=== PATIENT | male | born 2005 | race Caucasian/White ===

== ENCOUNTER 2023-10-28 13:13 | Emergency (ER) | payer OTHER, SELFPAY ==
[2023-10-28 13:23] VITALS: BP 142/73; PULSE 81; RESP 18; TEMP 36.8; O2SAT 96
--- NOTE | 2023-10-28 13:39 | ED.ALLEREA ---
HPI - Allergic Reaction General Time Seen by Provider: 13:39 Date Seen: 10/28/23 Chief complaint: Allergic Reaction Stated complaint: weak Time Seen by Provider: 10/28/23 13:17 Source: patient, EMS and RN notes reviewed Mode of arrival: EMS Limitations: no limitations History of Present Illness HPI narrative: This 18-year-old male is brought in by EMS for concern of an allergic reaction. He is a [employer] student, got stung on his 3rd finger by a wasp. Has had anaphylaxis type reaction with prior wasp stings. He did have Benadryl, took 50 mg right away. He unfortunately did not have his EpiPen in his backpack. He felt weak, nausea, felt like the back of his throat and his throat were closing. He had no difficulty breathing, could always swallow and manage his secretions, no rash. The did call EMS, by the time EMS got there he was feeling better. Epinephrine was never given. He feels back to baseline now. This episode happened about 12:30 p.m. today per his report. MD complaint: allergic reaction Treatment prior to arrival: benadryl Previous Allergic Reaction History: anaphylaxis Related Data Previous Rx's ?Medication ?Instructions ?Recorded prednisone 20 mg tablet 20 mg PO BID #4 tabs 10/28/23 Allergies Allergy/AdvReac Type Severity Reaction Status Date / Time whasp Allergy Severe Anaphylaxis Uncoded 10/28/23 13:37 Review of Systems Narrative As per HPI. Exam Const: Vital Signs, click to edit/add: Vital Signs - 24 hr 10/28/23 13:23 Temperature 98.2 F Pulse Rate [Pulse Oximeter] 81 Respiratory Rate 18 Blood Pressure [Ri ght Upper Arm] 142/73 H Pulse Oximetry 96 Oxygen Delivery Me thod Room Air This 18-year-old male is alert, interactive, no apparent distress. Pupils equal round reactive to light, sclera clear, extraocular muscles intact, symmetrical facial function. No lip or oral pharyngeal swelling, tongue is normal, posterior pharynx normal. Neck is supple, no adenopathy or masses. Lungs are clear, no wheezing or crackles, good air entry, no tachypnea. CV regular rate and rhythm, no murmur, normal S1-S2, no S3-S4. Abdomen is soft, nontender, nondistended, no masses, no organomegaly. Skin visualized without any rash. The left 3rd finger has some minimal erythema along the pad, do not see any retained foreign body. Documenting provider has reviewed patient's vital signs: yes Course Course ED Course: Patient will be given dose of oral prednisone, dose of Zyrtec. He will be watched on pulse oximetry to ensure no rebound symptoms. We discussed the importance of taking epinephrine if there are systemic reactions. He maybe anayeli that he responded to Benadryl alone. He does not need a refill of his EpiPen, will make sure that he is carrying 1 all the time. Reevaluation(s) Time of Reevaluation #1: 14:19 Reevaluation #1: Patient is feeling fine, no recurrent symptoms. He is back to baseline, will discharge to home. Vital Signs Vital signs: Initial Vital Signs Temperature 98.2 F 10/28/23 13:23 Temperature Source Temporal Artery Scan 10/28/23 13:23 Pulse Rate 81 10/28/23 13:23 Respiratory Rate 18 10/28/23 13:23 Blood Pressure 142/73 H 10/28/23 13:23 Blood Pressure Mean 96 10/28/23 13:23 Blood Pressure Position Sitting 10/28/23 13:23 Pulse Oximetry 96 10/28/23 13:23 Oxygen Delivery Method Room Air 10/28/23 13:23 Vital Signs Temperature 98.2 F 10/28/23 13:23 Pulse Rate 81 10/28/23 13:23 Respiratory Rate 18 10/28/23 13:23 Blood Pressure 142/73 H 10/28/23 13:23 Pulse Oximetry 96 10/28/23 13:23 Oxygen Delivery Method Room Air 10/28/23 13:23 Temperature 98.2 F 10/28/23 13:23 Pulse Rate 81 10/28/23 13:23 Respiratory Rate 18 10/28/23 13:23 Blood Pressure 142/73 H 10/28/23 13:23 Pulse Oximetry 96 10/28/23 13:23 Oxygen Delivery Method Room Air 10/28/23 13:23 Medications Administered Medications: Discontinued Medications Generic Name Dose Route Start Last Admin Trade Name Freq PRN Reason Stop Dose Admin Cetirizine HCl 10 mg 10/28/23 13:45 10/28/23 14:04 Cetirizine Hcl 10 Mg Tablet PO 10/28/23 13:46 10 mg DAILY ONE Administration Prednisone 40 mg 10/28/23 13:45 10/28/23 14:04 Prednisone 10 Mg Tablet PO 10/28/23 13:46 40 mg ONCE ONE Administration Discharge Plan Discharge Clinical Impression: Allergic reaction Patient Disposition: Home, Self-Care Condition: Stable Instructions: Anaphylaxis (ED), General Allergic Reaction (ED) Additional Instructions: Recommend taking Zyrtec or Claritin daily for the next 3 days, your given Zyrtec here today in the ER. Will give you a short course of prednisone, recommend taking with food. Next dose due tomorrow morning. Highly recommend that you carry an EpiPen with you at all times, continue to carry Benadryl with you as well. Is always recommended that you take your EpiPen if you are having a systemic allergic reaction. If you do take your EpiPen, do need to be seen emergently. Activity Level: Activity as Tolerated Prescriptions: New prednisone 20 mg tablet 20 mg PO BID Qty: 4 0RF Stand Alone Forms: [employer] Info Instructions
[2023-10-28 13:46] VITALS: O2SAT 98
[2023-10-28] MEDS: CETIRIZINE HCL 10 MG TABLET PO (14:04)
[2023-10-28] MEDS: predniSONE 10 MG TABLET 40 MG PO (14:04)
[2023-10-28 14:43] VITALS: BP 130/83; PULSE 70; RESP 16; O2SAT 96
== END 2023-10-28 14:53 | disposition home or self-care (01) ==
LOC: ED 14:37
PROVIDERS: Emergency Provider Family Medicine
DX: T63.461A Toxic effect of venom of wasps, accidental (unintentional), initial encounter (principal)
CPT/HCPCS: 99283; A0425; A0429; A9270; J7512